=== PATIENT | male | born 1965 | race Caucasian/White ===

== ENCOUNTER 2018-07-25 12:11 | Emergency (ER) | payer OTHER ==
--- NOTE | 2018-07-25 12:56 | EDM.PDOC ---
ED HPI GENERAL MEDICAL PROBLEM - General Chief Complaint: Lower Extremity Injury/Pain Stated Complaint: GOUT Time Seen by Provider: 07/25/18 12:45 Source of Information: Reports: Patient History Limitations: Reports: No Limitations - History of Present Illness INITIAL COMMENTS - FREE TEXT/NARRATIVE: Allen is a 52 year old male, presents to the ED today with c/o right knee pain, redness he relates to gout. Patient has similar attack 2-3 weeks ago which resolved with Indocin and Colchicine. He has had gout before this in his toes, pain worse with walking, movement of right knee. No fever, swelling of lower extremities or other complaints. Pain improved minimally with Ibuprofen. He has not taken steroids in the past for his gout. Duration: Day(s): (2) - Related Data Allergies Allergy/AdvReac Type Severity Reaction Status Date / Time Sulfa (Sulfonamide Allergy Hives Verified 07/25/18 12:30 Antibiotics) Home Meds: Home Meds NK [No Known Home Meds] 07/25/18 [History] Past Medical History - Past Surgical History HEENT Surgical History: Reports: Tonsillectomy Social & Family History - Tobacco Use Smoking Status *Q: Never Smoker Review of Systems - Review of Systems Review Of Systems: ROS reveals no pertinent complaints other than HPI. ED EXAM, GENERAL - Physical Exam Exam: See Below Exam Limited By: No Limitations General Appearance: Alert, WD/WN, No Apparent Distress Head: Atraumatic Respiratory/Chest: No Respiratory Distress Cardiovascular: Normal Peripheral Pulses, Regular Rate, Rhythm, Bradycardia Extremities: Redness, Other (Tender to palpation, right knee, consistent with prior gout flare, pedal pulses intact) Neurological: Alert, Oriented, CN II-XII Intact Psychiatric: Normal Affect, Normal Mood Skin Exam: Warm, Dry, Intact, Erythema (right knee, no signficant swelling, no evidence of abscess or bursitis. ) Lymphatic: No Adenopathy Course - Vital Signs Last Recorded V/S: Last Vital Signs Temp 36.3 C 07/25/18 12:35 Pulse 59 L 07/25/18 12:35 Resp 14 07/25/18 12:35 BP 129/75 07/25/18 12:35 Pulse Ox 95 07/25/18 12:35 Acute Gout of Right Knee Start Indocin and Colchicine as prescribed. Follow up with PCP when you return home. IF you develop worsening symptoms or concerns such as fever, increased redness/ swelling to knee return to the ED. Patient agreeable to plan of care and discharged in stable condition. Departure - Departure Time of Disposition: 13:10 Disposition: Home, Self-Care 01 Condition: Good Clinical Impression: Gout attack Qualifiers: Gout site: knee Gout etiology: idiopathic Laterality: right Qualified Code(s): M10.061 - Idiopathic gout, right knee - Discharge Information Instructions: Gout, [id number] Referrals: PCP,None [Primary Care Provider] - Forms: ED Department Discharge Additional Instructions: Return to the ED with any worsening symptoms, fever, chills or other concerns.
== END 2018-07-25 13:06 | disposition home or self-care (01) ==
LOC: JP.ED 12:11
DX: M10.061 Idiopathic gout, right knee (principal); Z88.2 Allergy status to sulfonamides; Z98.890 Other specified postprocedural states
CPT/HCPCS: 99283